=== PATIENT | male | born 1960 | race Caucasian/White ===

== ENCOUNTER 2017-11-24 11:08 | Outpatient (CLI) | payer BC | END 2017-11-24 23:59 | disposition home or self-care (01) | LOC: MRI 11:08 | PROVIDERS: ATTEND Legal Medicine | DX: M47.896 Other spondylosis, lumbar region (principal); M48.02 Spinal stenosis, cervical region; M43.8X2 Other specified deforming dorsopathies, cervical region; M54.12 Radiculopathy, cervical region; M54.14 Radiculopathy, thoracic region | CPT/HCPCS: 72141-TC; 72146-TC ==

== ENCOUNTER 2018-10-30 10:38 | Outpatient (CLI) | payer BC ==
[~2018-10-30 10:38] MED LIST: ATOR10TA PO; HYDR-3980 PO; LABE200T5 PO; LISI1TAB9 PO; TIMO5DRO35 EACHEYE
== END 2018-10-30 23:59 | disposition home or self-care (01) ==
LOC: MRI 10:38
PROVIDERS: ATTEND Legal Medicine
DX: M50.11 Cervical disc disorder with radiculopathy, high cervical region (principal); M48.02 Spinal stenosis, cervical region; M46.02 Spinal enthesopathy, cervical region; M12.88 Other specific arthropathies, not elsewhere classified, other specified site
CPT/HCPCS: 72141-TC

== ENCOUNTER 2019-08-28 11:09 | Outpatient (CLI) | payer BC ==
[~2019-08-28 11:09] MED LIST changes: +LISI1TAB32 PO; -LISI1TAB9 PO
== END 2019-08-28 23:59 | disposition home or self-care (01) ==
LOC: RAD 11:09
PROVIDERS: ATTEND Orthopaedic Surgery Sports Medicine
DX: S83.241A Other tear of medial meniscus, current injury, right knee, initial encounter (principal); M25.461 Effusion, right knee; X58.XXXA Exposure to other specified factors, initial encounter; Y93.89 Activity, other specified; Y92.89 Other specified places as the place of occurrence of the external cause; Y99.8 Other external cause status
CPT/HCPCS: 73721-TC

== ENCOUNTER 2020-02-28 08:57 | Outpatient (CLI) | payer BC | END 2020-02-28 23:59 | disposition home or self-care (01) | LOC: MSC 08:57 | PROVIDERS: ATTEND Internal Medicine | DX: I12.9 Hypertensive chronic kidney disease with stage 1 through stage 4 chronic kidney disease, or unspecified chronic kidney disease (principal); E11.22 Type 2 diabetes mellitus with diabetic chronic kidney disease; N18.30 Chronic kidney disease, stage 3 unspecified; E87.6 Hypokalemia; Z79.899 Other long term (current) drug therapy ==

== ENCOUNTER 2020-04-08 09:33 | Outpatient (CLI) | payer BC | END 2020-04-08 23:59 | disposition home or self-care (01) | LOC: MSC 09:33 | PROVIDERS: ATTEND Internal Medicine | DX: I12.9 Hypertensive chronic kidney disease with stage 1 through stage 4 chronic kidney disease, or unspecified chronic kidney disease (principal); E11.22 Type 2 diabetes mellitus with diabetic chronic kidney disease; N18.30 Chronic kidney disease, stage 3 unspecified; Z79.84 Long term (current) use of oral hypoglycemic drugs; E87.6 Hypokalemia; E29.1 Testicular hypofunction ==

== ENCOUNTER 2020-06-03 09:02 | Outpatient (CLI) | payer BC | END 2020-06-03 23:59 | disposition home or self-care (01) | LOC: MSC 09:02 | PROVIDERS: ATTEND Internal Medicine | DX: E11.22 Type 2 diabetes mellitus with diabetic chronic kidney disease (principal); I12.9 Hypertensive chronic kidney disease with stage 1 through stage 4 chronic kidney disease, or unspecified chronic kidney disease; N18.30 Chronic kidney disease, stage 3 unspecified; Z79.84 Long term (current) use of oral hypoglycemic drugs; D75.1 Secondary polycythemia; E87.6 Hypokalemia; Z79.899 Other long term (current) drug therapy ==

== ENCOUNTER 2020-11-25 07:41 | Outpatient (CLI) | payer BC | END 2020-11-25 23:59 | disposition home or self-care (01) | LOC: MRI 07:41 | PROVIDERS: ATTEND Legal Medicine | DX: S83.241D Other tear of medial meniscus, current injury, right knee, subsequent encounter (principal); X58.XXXD Exposure to other specified factors, subsequent encounter | CPT/HCPCS: 73721-TC ==

== ENCOUNTER 2020-12-09 11:26 | Outpatient (CLI) | payer BC | END 2020-12-09 23:59 | disposition home or self-care (01) | LOC: MRI 11:26 | PROVIDERS: ATTEND Legal Medicine | DX: M47.23 Other spondylosis with radiculopathy, cervicothoracic region (principal); M50.11 Cervical disc disorder with radiculopathy, high cervical region; M48.03 Spinal stenosis, cervicothoracic region; M19.012 Primary osteoarthritis, left shoulder; M75.52 Bursitis of left shoulder; M75.92 Shoulder lesion, unspecified, left shoulder | CPT/HCPCS: 72141-TC; 73221-TC ==